=== PATIENT | female | born 1985 ===

== ENCOUNTER 2021-07-27 12:49 | Emergency (ER) | payer BC ==
[~2021-07-27] VITALS: Ht 157.5 cm; Wt 63.5 kg
[2021-07-27] MEDS ORDERED: FAMOTIDINE. 20 MG/2 ML VIAL IV ONE ×2 (13:00→13:28)
[2021-07-27] MEDS ORDERED: LIDOCAINE VISCUS 2% 15 ML UDC MM ONE (13:00)
[2021-07-27] MEDS ORDERED: MAG HYDROX/AL HYDROX/SIMETH 30 ML LIQUID UDC PO ONE (13:00)
[2021-07-27] MEDS ORDERED: LIDOCAINE VISCUS 2% 15 ML UDC ONE (13:28)
[2021-07-27] MEDS ORDERED: MAG HYDROX/AL HYDROX/SIMETH 30 ML LIQUID UDC ONE (13:28)
[2021-07-27 13:32] LABS: HEMATOCRIT 38.8 % (31.2-41.9); MEAN CORPUSCULAR HEMOGLOBIN 28.9 uug (24.7-32.8); MEAN CORPUSCULAR VOLUME 85.9 fL (75.5-95.3); PLATELET COUNT (AUTO) 234 K/uL (179-408)
[2021-07-27 13:37] LABS: CREATININE 0.7 mg/dL (0.6-1.3); POTASSIUM 3.3 mmol/L (3.5-5.1)
[2021-07-27 13:43] LABS: BILIRUBIN,TOTAL 0.4 mg/dL (0.2-1.0); TOTAL PROTEIN, SERUM 7.6 g/dL (6.4-8.2)
[2021-07-27] MEDS ORDERED: MAG355OR21 PO (14:00)
[2021-07-27] MEDS ORDERED: FAMO-132 PO (14:00)
[2021-07-27 14:26] VITALS: BP 141/78
== END 2021-07-27 14:29 | disposition home or self-care (01) ==
LOC: ER 12:49
DX: R10.13 Epigastric pain (principal); R11.0 Nausea; R61 Generalized hyperhidrosis
CPT/HCPCS: 36415; 80053; 83690; 84484; 84702; 85025; 93005; 96374; 99284; J3490; A4663